=== PATIENT | female | born 1935 | race Caucasian/White ===

== ENCOUNTER 2016-10-09 09:45 | Day surgery (SDC) | payer OTHER ==
[2016-10-09] MEDS ORDERED: NS 1000 ML 1,000 ML ONE (11:41)
[2016-10-09] MEDS ORDERED: DIPRIVAN VIAL 20 ML ONE (12:30)
[2016-10-09 13:39] VITALS: BP 119/54
== END 2016-10-09 13:18 | disposition home or self-care (01) ==
LOC: SURG1 09:45
PROVIDERS: ATTEND Internal Medicine
PROC: 0DB68ZX Excision of Stomach, Via Natural or Artificial Opening Endoscopic, Diagnostic (ICD-10-PCS; principal; 2016-10-09 12:30)
PROC: 0DJ08ZZ Inspection of Upper Intestinal Tract, Via Natural or Artificial Opening Endoscopic (ICD-10-PCS; principal; 2016-10-09 12:30)
DX: R10.13 Epigastric pain (principal); R13.19 Other dysphagia; K44.9 Diaphragmatic hernia without obstruction or gangrene; K20.8 Other esophagitis; K22.10 Ulcer of esophagus without bleeding; K22.2 Esophageal obstruction; K29.60 Other gastritis without bleeding; K29.80 Duodenitis without bleeding; K21.9 Gastro-esophageal reflux disease without esophagitis
CPT/HCPCS: 99100; A4217; J3490